=== PATIENT | male | born 1945 | race Caucasian/White ===

== ENCOUNTER → 2023-11-23 | Outpatient (CLI) | payer MEDICARE | END | disposition home or self-care (01) | LOC: RAH 12:19 | PROVIDERS: ATTEND Internal Medicine Cardiovascular Disease | DX: K80.20 Calculus of gallbladder without cholecystitis without obstruction (principal); J44.9 Chronic obstructive pulmonary disease, unspecified; M47.815 Spondylosis without myelopathy or radiculopathy, thoracolumbar region; I25.10 Atherosclerotic heart disease of native coronary artery without angina pectoris; J94.8 Other specified pleural conditions | CPT/HCPCS: 71250 ==

== ENCOUNTER 2025-01-15 06:40 | Day surgery (SDC) | payer MEDICARE ==
[2025-01-13 12:50] LABS: BASOPHILS # (AUTO) 0.03 K/uL (0.00-0.20); BASOPHILS % (AUTO) 0.5 % (0.0-5.0); EOSINOPHILS # (AUTO) 0.14 K/uL (0.00-0.70); EOSINOPHILS % (AUTO) 2.1 % (0.0-8.0); HEMATOCRIT 43.3 % (42-54); IMMATURE GRANULOCYTE ABSOLUTE 0.02 K/uL (0-1); LYMPHOCYTES # (AUTO) 1.6 K/uL (1.0-4.8); LYMPHOCYTES % (AUTO) 23.8 % (21.0-51.0); MEAN CORPUSCULAR HEMOGLOBIN 32.5 pg (27.0-33.0); MEAN CORPUSCULAR HGB CONC 34.2 g/dL (32.0-36.0); MONOCYTES # (AUTO) 0.5 K/uL (0.1-1.0); MONOCYTES % (AUTO) 7.8 % (3.0-13.0); NEUTROPHILS # (AUTO) 4.3 K/uL (1.8-7.7); NEUTROPHILS % (AUTO) 65.5 % (40.0-77.0); PLATELET COUNT (AUTO) 154 K/uL (130-400); RED BLOOD CELL COUNT(AUTO) 4.56 MIL/uL (4.50-6.20); RED CELL DISTRIBUTION WIDTH 12.5 % (11.0-15.5); WHITE BLOOD COUNT (AUTO) 6.6 K/uL (4.8-10.8)
[2025-01-13 13:02] LABS: CREATININE 0.9 mg/dL (0.5-1.3); INR 1.06 (0.85-1.15); PROTHROMBIN TIME 11.2 SEC (9.6-11.6)
[2025-01-13 13:07] VITALS: BP 144/60; PULSE 75; RESP 18; TEMP 98
[2025-01-13 13:09] LABS: B-TYPE NATRIURETIC PEPTIDE 43 pg/mL (0-100)
--- NOTE | 2025-01-13 13:21 | EKG ---
[facility] Test Date: 2025-01-13 Test Time: 12:42:02 Pat Name: MARY GARRISON Department: [facility] Room: Gender: M Manager Part: [id number] : 1945 Requested By: GLENNY DAVIES Order Number: [id number] Reading MD: David Cavanaugh Measurements Intervals Walls Rate: 80 P: 0 ME: 231 QRS: -15 QRSD: 101 T: 15 QT: 390 QTc: 450 Interpretive Statements Atrial-paced complexes Prolonged ME interval Anteroseptal infarct, old No previous ECG available for comparison Electronically Signed On 01-14-2025 07:02:05 CDT by David Cavanaugh Please click the below link to view image of tracing.
[2025-01-13 13:45] LABS: APPEARANCE,URINE CLOUDY (CLEAR); BILIRUBIN,URINE NEGATIVE (NEGATIVE); COLOR,URINE YELLOW (YELLOW); GLUCOSE, URINE (UA) NEGATIVE (NEGATIVE); KETONES,URINE NEGATIVE (NEGATIVE); LEUKOCYTE ESTERASE ,URINE NEGATIVE Leu/uL (NEGATIVE); NITRATE,URINE NEGATIVE (NEGATIVE); OCCULT BLOOD,URINE NEGATIVE (NEGATIVE); PH,URINE 6.5 (5.0-8.0); PROTEIN,URINE NEGATIVE (NEGATIVE)
--- NOTE | 2025-01-13 14:07 | HMCIMG ---
CHEST 1VW HISTORY: Preop COMPARISON: None FINDINGS: A frontal projection of the chest was obtained. Prominent interstitial markings are seen with possible superimposed infiltrates. The heart is borderline enlarged. Pacemaker is seen entering from the left. Degenerative changes are seen. IMPRESSION: 1. Prominent interstitial markings are seen with possible superimposed infiltrates.
[2025-01-13 14:11] LABS: ADD UA MICROSCOPIC YES
[2025-01-13 14:26] LABS: BACTERIA,URINE FEW /HPF (None Seen); MUCUS,URINE RARE LPF (None Seen); WBC,URINE 0-1 /HPF (0-1)
--- NOTE | 2025-01-14 13:39 | NUR ---
report reported cxr to gennaro ga np. ok to proceed
[~2025-01-15] VITALS: Ht 177.8 cm; Wt 93.5 kg
[2025-01-15] VITALS (9 sets, daily range): BP systolic 121–145; BP diastolic 57–66; PULSE 60–74; RESP 14–18; TEMP 97.4–98.4
[~2025-01-15 06:40] MED LIST: AMLO-258 PO; APIX5TAB PO; DOXA1TAB2 PO; FINA5TAB41 PO; LABE200T7 PO; OLME40TA18 PO; ROSU40TA88 PO
[2025-01-15] MEDS: 0.9%NACL 1000ML 1,000 ML IV SCH (07:45)
[2025-01-15] MEDS ORDERED: HEParin 10,000 UNIT/10ML (1,000 UNIT/ML) VIAL ONE (09:42)
[2025-01-15] MEDS ORDERED: IOHEXOL 350 MG/ML 100ML INFUS..BTL IV ONE ×2 (09:42→09:55)
[2025-01-15] MEDS ORDERED: HEParin-NS 1,000 UNIT/500 ML 1,500 ML IV ONE (09:42)
[2025-01-15] MEDS ORDERED: LIDOCAINE HCL 400MG/20ML VIAL ONE (09:42)
[2025-01-15] MEDS ORDERED: NITROGLYCERIN 50MG VIAL ONE (09:43)
[2025-01-15] MEDS ORDERED: ATROPINE 1MG SYG IVP ONE (10:00)
[2025-01-15] MEDS ORDERED: FENTanyl CITRate PF 50 MCG/1 ML 2ML VIAL ONE (10:15)
[2025-01-15] MEDS ORDERED: MIDAZOLAM HCL 1 MG/ML 2ML VIAL ONE (10:16)
[2025-01-15] MEDS ORDERED: HEParin-NS 1,000 UNIT/500 ML 500 ML IV ONE (11:16)
[2025-01-15] MEDS ORDERED: 0.9%NACL 1000ML 1,000 ML IV SCH (12:30)
--- NOTE | 2025-01-15 12:47 | PRN ---
DATE OF PROCEDURE: 01/15/2025 PROCEDURE PERFORMED: RIGHT AND LEFT HEART CATHETERIZATION, LEFT VENTRICULOGRAM, RIGHT AND LEFT SELECTIVE CORONARY ANGIOGRAM, RIGHT COMMON FEMORAL ANGIOGRAM, PERCLOSE SUTURE CLOSURE OF THE RIGHT COMMON FEMORAL ARTERY, AND CONSCIOUS SEDATION DRY CLIPPER TENDER: Glenny Davies MD, [facility] INDICATION: Severe aortic stenosis by 2D echocardiogram 12/24/2024 with peak aortic valve gradient of 53 mm of mercury, mean aortic valve gradient of 35 mm of mercury, dimensionless index of 0.27, and aortic valve area of 1.0 cm. PROCEDURE NOTE: After informed consent was obtained the patient was prepped and draped in the usual sterile fashion. A 6 [place] 65 cm Destination arterial sheath was inserted in the right femoral artery using a ultrasound guidance with micropuncture technique. This was performed after fluoroscopic identification of bony landmarks to facilitate a more accurate puncture of the right common femoral artery. A seven [place] venous sheath with hemostatic valve was inserted into the right common femoral vein again using micropuncture technique and ultrasound guidance without difficulty. Both sheaths were aspirated and flushed. A seven [place] S tipped [place] catheter was advanced using fluoroscopic guidance and balloon floatation to the right heart with measurements of RA, RV, PA, and pulmonary capillary wedge pressures. Simultaneous measurement of LVEDP and wedge were also obtained as well as thermodilution cardiac outputs. Findings were as outlined below. A 5 [place] pigtail catheter was then advanced over a J-tipped guidewire to the ascending aorta and identical pressure measurements were obtained in the ascending aorta both via the long 6F Destination arterial sheath and via the 5F pigtail catheter. Using a straight wire the five [place] pigtail catheter was then advanced into the left ventricle with mild difficulty. The catheter was aspirated and flushed and simultaneous pressure measurements in LV and ascending aorta were obtained. Thermodilution and Britta cardiac outputs followed by valve areas were obtained demonstrating excellent fidelity. A left ventriculogram was then performed in a 30 MARIANO projection. A pullback procedure was then performed, and this catheter was removed over a J-tipped guidewire. A 6F JL-4 was then advanced to the ascending aorta over a J-tipped guidewire, was aspirated and flushed, and was used for selective left coronary angiograms in multiple obliquities. A JR-4 was advanced in a similar fashion to the ascending aorta over a J-tipped guidewire and was used for selective right coronary angiograms in multiple obliquities with findings as outlined below. A right common femoral angiogram was performed to assess suitability for Perclose suture closure and the Perclose device was deployed in standard fashion. Perclose suture closure was successful without bleeding or hematoma. The patient tolerated the procedure well and was returned to the holding area in stable condition. FINDINGS: RIGHT HEART CATHETERIZATION: RA pressure 11 mm of mercury on the A-wave, 9 mm of mercury on the V-wave and mean RA pressure was 7 mm of mercury RV pressure was 36/9 mm of mercury PA pressure was 36/13 mm of mercury Mean PA pressure was 32 mm of mercury Pulmonary capillary wedge pressure was 17 mm of mercury on the A-wave, 18 mm of mercury on the V-wave, and the mean pulmonary capillary wedge pressure was 14 mm of mercury. Thermodilution cardiac outputs were 5.3 L/min and cardiac index 2.5 L/min per meter squared Britta cardiac output was 5.4 L/min and cardiac index 2.6 L/min per meter squared LEFT HEART HEMODYNAMICS: LVEDP was 22 mm of mercury prior to LV-gram in 21 mm of mercury after LV-gram. Peak to peak aortic valve gradients were 17 mm of mercury Mean aortic valve gradient was 18 mm of mercury Aortic valve area was 1.3 cm2 with both thermodilution and Britta cardiac output determinations. LEFT VENTRICULOGRAM: There was mild anteroapical hypokinesis with an LVEF of 50-55%. There was no angiographic MR. CORONARY ANGIOGRAM: LEFT MAIN: The left main was normal. LEFT ANTERIOR DESCENDING: The left anterior descending had a 35% proximal stenosis and a 35% mid stenosis but was otherwise normal. The 1st and 2nd diagonal branches were also normal. LEFT CIRCUMFLEX: The left circumflex was nondominant and had a 20% proximal stenosis and was otherwise normal. The OM1 was large and bifurcated with the inferior large branch demonstrating a 30% stenosis. Otherwise the OM branches were normal. RAMUS INTERMEDIATE BRANCH: There was no ramus intermediate branch. RIGHT CORONARY ARTERY: The RCA had a 20% proximal stenosis, 50% mid stenosis, and 30% and 50% tandem distal RCA stenoses. The PDA and posterolateral branches were normal. IMPRESSION: Mild anteroapical hypokinesis with LVEF of 50-55%. No mitral regurgitation. No mitral stenosis. Moderate aortic stenosis with aortic valve area of 1.3 cm2 using both Britta and thermodilution cardiac outputs, peak to peak aortic valve gradients of 17 mm of mercury, and mean aortic valve gradient of 18 mm of mercury. Normal PA pressures and pulmonary capillary wedge pressure mean was 14 mm of mercury. Nonobstructive coronary artery disease with 35% proximal and mid LAD stenoses, 30% stenosis in the inferior branch of the OM1, 50% mid RCA stenosis, and 50% distal RCA stenosis only. RECOMMENDATION: Risk factor modification and aggressive statin therapy to prevent CAD progression. SB prophylaxis prior to any dirty procedures. Repeat 2D echo in one year. COMPLICATIONS OF PROCEDURE: None, the patient tolerated the procedure well and was returned to his room in stable condition. HEMOSTASIS: Perclose suture closure was successful without bleeding or hematoma. ESTIMATED BLOOD LOSS: Less than 10 mL. CONTRAST TOTAL: 175 mL. GLENNY DAVIES MD Jan 15, 2025 12:47
== END 2025-01-15 16:10 | disposition home or self-care (01) ==
LOC: DAH 06:40 → EDSTATUS 14:00 → DAH 16:10
PROVIDERS: ATTEND Internal Medicine Cardiovascular Disease
DX: I35.0 Nonrheumatic aortic (valve) stenosis (principal); I25.10 Atherosclerotic heart disease of native coronary artery without angina pectoris; R06.09 Other forms of dyspnea; I48.0 Paroxysmal atrial fibrillation; J44.9 Chronic obstructive pulmonary disease, unspecified; E78.5 Hyperlipidemia, unspecified; Z79.01 Long term (current) use of anticoagulants; Z79.899 Other long term (current) drug therapy
CPT/HCPCS: 80048; 83880; 85025; 85610; 85730; 81001; 36415; 71045; 93005; 93460; C1769 ×3; C1894 ×3; C1760; C1893; J3010; J3490 ×2; J2250; J1644 ×2; Q9967 ×2; A4215; A4222; A4221; A4663; A4216; A4606; Q9965 ×2; A4223 ×3; 99156; 99157; J0461